=== PATIENT | male | born 1940 | race Caucasian/White ===

== ENCOUNTER 2019-05-11 12:10 | Emergency (ER) | payer MEDICARE, OTHER, SELFPAY ==
[2019-05-11 12:24] VITALS: BP 176/81; PULSE 86; RESP 16; TEMP 36.9; O2SAT 95; BMI 27.5
--- NOTE | 2019-05-11 12:26 | DI.RAD.S_ITS ---
PROCEDURE: XR CHEST 2V INDICATIONS: shortness of breath TECHNIQUE: 2 views of the chest were acquired. COMPARISON: [facility], CR, RIBS UNILATERAL 2 VIEWS, 01/17/2017, 13:19. [facility], CT, THORAX WITHOUT CONTRAST, 07/06/2016, 9:18. FINDINGS: Surgical changes and devices: None. Lungs and pleura: Low lung volumes are noted. This causes a crowded appearance to the lung markings and limits evaluation. Mild, streaky opacities are seen at the lung bases, right worse than left. No pneumothorax or large pleural effusion can be seen. Mediastinum: Mediastinal contours are normal. Heart size is normal. Bones and chest wall: No suspicious bony abnormalities. Remote right rib irregularity is seen, which is similar to 2017. Age-appropriate bony degenerative changes are seen. No acute rib fractures can be seen. Soft tissues appear unremarkable. IMPRESSION: Limited study demonstrating likely atelectasis at the lung bases, right worse than left. Remote right chest wall deformity. Dictated by: Hector Murillo M.D. on 05/11/2019 at 12:17 Approved by: Hector Murillo M.D. on 05/11/2019 at 12:18
[2019-05-11 13:17] LABS: Add Manual Diff / Slide Review NO; Basophils Absolute Auto 100 /uL (0-100); Basophils Percent Auto 1.1 % (0-2); Eosinophils Absolute Auto 100 /uL (0-450); Hematocrit 39.6 % (41-53); Hemoglobin 13.6 g/dL (13.5-17.5); Lymphocytes Absolute Auto 1400 /uL (1100-4500); Lymphocytes Percent Auto 16.6 % (25-40); Mean Corpuscular HGB Conc 34.4 % (30-36); Mean Corpuscular Hemoglobin 32.5 PG (26-34); Mean Corpuscular Volume 94.4 fL (80-100); Monocytes Absolute Auto 1500 /uL (0-900); Monocytes Percent Auto 18.1 % (3-14); Neutrophils Absolute Auto 5200 /uL (1500-7000); Neutrophils Percent Auto 63.2 % (50-75); Platelet Count 121 X10^3/uL (150-400); Red Cell Distribution Width 13.5 % (11.6-14.8); White Blood Cell Count 8.2 X10^3/uL (4.5-11.0)
[2019-05-11 13:22] LABS: Alanine Aminotransferase 37 IU/L (<50); Albumin 4.1 g/dL (3.5-5.0); Albumin Globulin Ratio 1.3 (1.0-2.8); Alkaline Phosphatase 94 U/L (38-126); Aspartate Aminotransferase 25 IU/L (17-59); BUN Creatinine Ratio 22.2 (6-22); Blood Urea Nitrogen 20 mg/dL (9-20); Calcium 9.1 mg/dL (8.4-10.2); Carbon Dioxide 21 mmol/L (22-32); Chloride 107 mmol/L (98-107); Estimated Glomerular Filt Rate > 60.0 mL/min (>60); Globulin 3.2 g/dL (1.7-4.1); Glucose 112 mg/dL (80-110); HEMOLYSIS < 15 (0-50); Potassium 3.9 mmol/L (3.4-5.1); Sodium 138 mmol/L (137-145); Total Protein 7.3 g/dL (6.3-8.2)
[2019-05-11 14:00] VITALS: BP 168/107; PULSE 80; RESP 13; O2SAT 97
--- NOTE | 2019-05-11 16:20 | PC.NURSE ---
RT at bedside
[2019-05-11] MEDS: ALBUTEROL/IPRATROPIUM 3 ML AMPUL INH (16:29)
[2019-05-11 16:30] VITALS: PULSE 84; RESP 16; O2SAT 97
[2019-05-11] MEDS: ALBUTEROL 2.5 MG/3 ML NEB (ADULT) INH (16:30)
[2019-05-11 16:59] VITALS: BP 147/64; PULSE 93; RESP 15; O2SAT 94
--- NOTE | 2019-05-11 23:25 | ED.SOB ---
HPI - SOB/Dyspnea <JANELLE Dinh - Last Filed: 05/12/19 00:02> General Chief Complaint: Shortness of Breath/Dyspnea Stated Complaint: difficulty breathing, coughing Time Seen by Provider: 05/11/19 15:31 Source: patient Mode of arrival: Ambulatory Limitations: no limitations History of Present Illness HPI Narrative: This is the 71s 8 year olds male, former smokers, who presenting to ED with cough, sore ribs, right pleuritic chest discomfort with cough over a week which she is getting worse. Patient has history of COPD, emphysema, asthma, thoracotomy on right chest from a severe pneumonia. Spouse states frequently patient's bed court turns to pneumonia in the past. Patient reports since then his right lung size is about only 2/3 of the left side lung in the imaging tests. Patient uses albuterol inhaler as needed and Advair twice a day. Patient usually does not require to use rescue inhaler too frequently. Patient reports he has been using rescue inhaler only a couple of times a day for his symptoms. Patient denies prior intubation. Patient denies fever, chills, nausea or vomiting but reports facial sinus tenderness to palpate and malaise. Patient states taking [id number] cold medicine causes is sinus get inflamed and clogged. Patient states he has been taking all the cold medication for his cough which has not been effective. Related Data Home Medications Medication Instructions Recorded Confirmed albuterol sulfate 90 mcg/actuation 2 puff INHALATION Q6H PRN 02/06/19 02/06/19 aerosol inhaler fluticasone 100 mcg-salmeterol 50 1 puff INHALATION DAILY 02/06/19 02/06/19 mcg/dose blistr powdr for inhalation gabapentin 300 mg capsule 300 mg PO DAILY 02/06/19 02/06/19 indomethacin 75 mg 75 mg PO DAILY 02/06/19 02/06/19 capsule,extended release methocarbamol 750 mg tablet 750 mg PO TID 02/06/19 02/06/19 montelukast 10 mg tablet 10 mg PO DAILY 02/06/19 02/06/19 Previous Rx's Medication Instructions Recorded doxycycline hyclate 100 mg PO BID 7 Days #14 cap 05/11/19 prednisone 40 mg PO DAILY 5 Days #10 tab 05/11/19 Allergies Allergy/AdvReac Type Severity Reaction Status Date / Time aspirin Allergy Unknown Verified 05/11/19 12:24 Review of Systems <JANELLE Dinh - Last Filed: 05/12/19 00:02> Review of Systems Narrative: General: Denies fever, chills, fatigue, (+) malaise, sweats. HEENT: Denies (+) sinus pain, ear pain, sore throat, difficulty swallowing, dizziness. Respiratory: HPI Cardiovascular: Denies (+) pleuritic right chest pain, palpitations, orthopnea, edema. Gastrointestinal: Denies nausea, vomiting, abdominal pain, diarrhea, constipation, melena. : Denies dysuria, frequency, incontinence, hematuria, urinary retention. Musculoskeletal: Denies weakness, joint pain or bony pain. Skin: Denies rash, skin lesions, or other. Neurologic: Denies weakness, headache, numbness, change in speech, confusion, seizures, incoordination. Psychiatric: No concerning psychosocial issues. 12-point review of systems is negative except for those stated above. Patient History <JANELLE Dinh - Last Filed: 05/12/19 00:02> Medical History Aortic valve insufficiency (Acute) Asthma (Acute) Chronic back pain (Acute) COPD (chronic obstructive pulmonary disease) (Acute) COPD (chronic obstructive pulmonary disease) (Acute) Emphysema lung (Acute) Hypotension (Acute) Surgical History History of thoracotomy (Acute) Hx of cholecystectomy (Acute) Social History marital status: household members: spouse occupational status: previously employed Smoking Status: Never smoker alcohol intake: never substance use type: does not use Smoking Status: Never smoker Exam <JANELLE Dinh - Last Filed: 05/12/19 00:02> Narrative Exam Narrative: GEN: Alert, oriented x 3, well appearing and nourished, and in no acute distress. Head: Normal cephalic, atraumatic. No scalp or temporal tenderness, palpable mass or rash. EYES: Pupils are equal, round, and reactive to light and accommodation. Extraocular muscles are intact bilaterally. There is no subconjunctival hemorrhage, exudate and sclera non-icteric. ENT: Bilateral auditory canals and tympanic membranes clear. Hearing grossly intact. Nose without bleeding, purulent discharge or deviation. Facial sinuses tender to palpate. Mucous membrane moist, no mucosal lesion. Throat without erythema, tonsillar hypertrophy or exudate. Uvula in midline, airway patent. Neck: Trachea in midline. No JVD, non-tender without lymphadenopathy. No masses or thyroid megaly. Supple, non-tender and no meningeal signs. CARDIAC: Normal regular rate and rhythm with murmurs but gallops, or rubs. No chest wall tenderness. No peripheral edema, cyanosis or pallor. Capillary refill is less than 2 seconds. RESPIRATORY: Lungs are significantly decreased to auscultate bilaterally. Frequent nonproductive cough without wheezes, rales, or rhonchi. No stridor, respiratory distress, increase work of breathing, or accessary muscle used. ABD: Abdomen soft, nontender and non-distended. No guarding or rebound tenderness to palpate. Bowel sounds are normal in all 4 quadrants. There is no palpable masses or organomegaly. EXT: Full painless ROM of all extremities with no loss of sensation, strength, effusion or edema. SKIN: Hot, dry, flushed appearance in the face. No erythema, lesions or rash over other visible areas. BACK: Nontender without deformity or crepitance. No flank tenderness. NEUROLOGICAL: Alert and oriented to place, time and person. Sensation and motor function intact bilaterally. No facial droops, dysphasia. PSYCHIATRIC: Good judgement and reason, without hallucinations, abnormal affect or abnormal behaviors during the examination. Initial Vital Signs Initial Vital Signs: Vital Signs Temperature 98.5 F 05/11/19 12:24 Pulse Rate 86 05/11/19 12:24 Respiratory Rate 16 05/11/19 12:24 Blood Pressure 176/81 H 05/11/19 12:24 Pulse Oximetry 95 05/11/19 12:24 <John Odom MD - Last Filed: 05/12/19 08:00> Initial Vital Signs Initial Vital Signs: Vital Signs Temperature 98.5 F 05/11/19 12:24 Pulse Rate 86 05/11/19 12:24 Respiratory Rate 16 05/11/19 12:24 Blood Pressure 176/81 H 05/11/19 12:24 Pulse Oximetry 95 05/11/19 12:24 Scores <Francisco BoudreauxJANELLE Mccollum - Last Filed: 05/12/19 00:02> LUZ MARINA-Rasheed Confusion: No BUN >19mg/dL (>7mmol/L): Yes Respiratory rate greater or equal to 30: No SBP <90mmHg or DBP less or equal to 60mmHg: No Age 65 or Older: Yes LUZ MARINA-Rasheed Total: 2 Score 0-1 Outpatient care, Score 2 Inpt vs. Obs, Score 3 or over Inpt admit with ICU for score of 4-5 GCS Joe coma scale eye opening: Spontaneous Florence coma scale verbal response: Orientated Florence coma scale motor response: Obey commands Joe coma scale total score: 15 Course <Francisco BoudreauxJANELLE Mccollum - Last Filed: 05/12/19 00:02> Orders Ordered: Discontinued Medications Albuterol (Ventolin) 2.5 mg INH NOW ONE Stop: 05/11/19 15:55 Last Admin: 05/11/19 16:30 Dose: 2.5 mg Documented by: ANTOINE Albuterol/Ipratropium (Duoneb) 3 ml INH NOW ONE Stop: 05/11/19 15:55 Last Admin: 05/11/19 16:29 Dose: 3 ml Documented by: ANTOINE Vital Signs Vital signs: Vital Signs - 8 hr 05/11/19 16:30 05/11/19 16:59 Pulse Rate 84 93 H Respiratory Rate 16 15 Blood Pressure [Left Arm] 147/64 H Pulse Oximetry 97 94 <John Odom MD - Last Filed: 05/12/19 08:00> Orders Ordered: Discontinued Medications Albuterol (Ventolin) 2.5 mg INH NOW ONE Stop: 05/11/19 15:55 Last Admin: 05/11/19 16:30 Dose: 2.5 mg Documented by: ANTOINE Albuterol/Ipratropium (Duoneb) 3 ml INH NOW ONE Stop: 05/11/19 15:55 Last Admin: 05/11/19 16:29 Dose: 3 ml Documented by: ANTOINE Vital Signs Vital signs: Vital Signs - 8 hr 05/11/19 16:30 05/11/19 16:59 Pulse Rate 84 93 H Respiratory Rate 16 15 Blood Pressure [Left Arm] 147/64 H Pulse Oximetry 97 94 MDM - SOB/Dyspnea <Francisco WINTER FischerP - Last Filed: 05/12/19 00:02> Differential Diagnosis Differential diagnosis: Likely acute exacerbation of chronic obstructive airways disease, community acquired pneumonia, asthma with exacerbation and other (URI, sinus infection) Medical Records Attestation: I reviewed the patient's medical records. Lab Data Attestation: I reviewed the patient's lab results. Result diagrams: 05/11/19 12:43 05/11/19 12:43 Labs: Lab Results 05/11/19 05/11/19 Range/Units 12:43 12:43 WBC 8.2 (4.5-11.0) X10^3/uL RBC 4.20 L (4.5-5.9) X10^6/uL Hgb 13.6 (13.5-17.5) g/dL Hct 39.6 L (41-53) % MCV 94.4 (80-100) fL MCH 32.5 (26-34) PG MCHC 34.4 (30-36) % RDW 13.5 (11.6-14.8) % Plt Count 121 L (150-400) X10^3/uL Neut % (Auto) 63.2 (50-75) % Lymph % (Auto) 16.6 L (25-40) % Callahan % (Auto) 18.1 H (3-14) % Eos % (Auto) 1.0 L (2-4) % Baso % (Auto) 1.1 (0-2) % Neut # (Auto) 5200 (2983-1262) /uL Lymph # (Auto) 1400 (6957-6912) /uL Callahan # (Auto) 1500 H (0-900) /uL Eos # (Auto) 100 (0-450) /uL Baso # (Auto) 100 (0-100) /uL Sodium 138 (137-145) mmol/L Potassium 3.9 (3.4-5.1) mmol/L Chloride 107 (98-107) mmol/L Carbon Dioxide 21 L (22-32) mmol/L BUN 20 (9-20) mg/dL Creatinine 0.90 (0.66-1.25) mg/dL Estimated GFR > 60.0 (>60) mL/min BUN/Creatinine Ratio 22.2 H (6-22) Glucose 112 H (80-110) mg/dL Calcium 9.1 (8.4-10.2) mg/dL Total Bilirubin 1.0 (0.2-1.3) mg/dL AST 25 (17-59) IU/L ALT 37 (<50) IU/L Alkaline Phosphatase 94 (38-126) U/L Total Protein 7.3 (6.3-8.2) g/dL Albumin 4.1 (3.5-5.0) g/dL Globulin 3.2 (1.7-4.1) g/dL Albumin/Globulin Ratio 1.3 (1.0-2.8) Imaging Data Chest x-ray: Radiologist's Impression: [address] [address] XRay Report Signed Patient: Michelet Ibarra DMR#: [id number] : 2Acct:[id number] Age/Sex: 78 / MDate of Service: 05/11/19 Loc: ED Accession Number: [id number] Procedure: XR chest 2V Ordering Provider: John Odom MD PROCEDURE: XR CHEST 2V INDICATIONS: shortness of breath TECHNIQUE: 2 views of the chest were acquired. COMPARISON: [facility], CR, RIBS UNILATERAL 2 VIEWS, 01/17/2017, 13:19. [facility], CT, THORAX WITHOUT CONTRAST, 07/06/2016, 9:18. FINDINGS: Surgical changes and devices: None. Lungs and pleura: Low lung volumes are noted. This causes a crowded appearance to the lung markings and limits evaluation. Mild, streaky opacities are seen at the lung bases, right worse than left. No pneumothorax or large pleural effusion can be seen. Mediastinum: Mediastinal contours are normal. Heart size is normal. Bones and chest wall: No suspicious bony abnormalities. Remote right rib irregularity is seen, which is similar to 2017. Age-appropriate bony degenerative changes are seen. No acute rib fractures can be seen. Soft tissues appear unremarkable. IMPRESSION: Limited study demonstrating likely atelectasis at the lung bases, right worse than left. Remote right chest wall deformity. Dictated by: Hector Murillo M.D. on 05/11/2019 at 12:17 Approved by: Hector Murillo M.D. on 05/11/2019 at 12:18 ECG Data Attestation: I personally reviewed and interpreted this ECG as follows: Prior ECG tracings: not available for review Interpretation: SR rate at 82. Left axis dominant MA int 191, QRS dur 103, QT/QTc 372/410. Non specific T wave abnormality MDM Narrative Medical decision making narrative: This is a 78 year old male who has significant pulmonary is is a history such as asthma, emphysema, COPD and right chest thoracotomy from a severe pneumonia presents to ED with over 1 week duration of cough, short of breath and pleuritic chest pain. EKG was normal sinus rhythm with nonspecific T-wave abnormalty. There was no significant leukocytosis. Chemistry test was unremarkable. Patient was afebrile with stable vital signs. Chest x-ray shows with mild streaky opacities on the lung bases right worse than left demonstrating likely atelectasis. Patient's lung sounds were significantly diminished in all lobes. Patient provided with nebulizer treatment with DuoNeb and albuterol improved air movement. Patient had frequent nonproductive cough witnessed during exam. Patient advised to use nebulizer treatment at home that he has not used and albuterol inhaler more frequently if patient has symptoms such as chest tightness, frequent coughing, wheezing. Given the duration of patient's symptoms which is worsening, extensive history of pulmonary disease, decided to treat patient empirically with antibiotic medication doxycycline b.i.d. dose for 7 day course. Patient also discharged to home with short burst course of steroids. Patient informed possible side effects from steroids and advised to follow up with PCP in 2-3 days for re-evaluation. Strict return precautions were discussed with the patient and patient verbalized understanding and in agreement with treatment plan. <John Odom MD - Last Filed: 05/12/19 08:00> Lab Data Labs: Lab Results 05/11/19 05/11/19 Range/Units 12:43 12:43 WBC 8.2 (4.5-11.0) X10^3/uL RBC 4.20 L (4.5-5.9) X10^6/uL Hgb 13.6 (13.5-17.5) g/dL Hct 39.6 L (41-53) % MCV 94.4 (80-100) fL MCH 32.5 (26-34) PG MCHC 34.4 (30-36) % RDW 13.5 (11.6-14.8) % Plt Count 121 L (150-400) X10^3/uL Neut % (Auto) 63.2 (50-75) % Lymph % (Auto) 16.6 L (25-40) % Callahan % (Auto) 18.1 H (3-14) % Eos % (Auto) 1.0 L (2-4) % Baso % (Auto) 1.1 (0-2) % Neut # (Auto) 5200 (5239-1647) /uL Lymph # (Auto) 1400 (0260-2838) /uL Callahan # (Auto) 1500 H (0-900) /uL Eos # (Auto) 100 (0-450) /uL Baso # (Auto) 100 (0-100) /uL Sodium 138 (137-145) mmol/L Potassium 3.9 (3.4-5.1) mmol/L Chloride 107 (98-107) mmol/L Carbon Dioxide 21 L (22-32) mmol/L BUN 20 (9-20) mg/dL Creatinine 0.90 (0.66-1.25) mg/dL Estimated GFR > 60.0 (>60) mL/min BUN/Creatinine Ratio 22.2 H (6-22) Glucose 112 H (80-110) mg/dL Calcium 9.1 (8.4-10.2) mg/dL Total Bilirubin 1.0 (0.2-1.3) mg/dL AST 25 (17-59) IU/L ALT 37 (<50) IU/L Alkaline Phosphatase 94 (38-126) U/L Total Protein 7.3 (6.3-8.2) g/dL Albumin 4.1 (3.5-5.0) g/dL Globulin 3.2 (1.7-4.1) g/dL Albumin/Globulin Ratio 1.3 (1.0-2.8) Discharge Plan Departure Patient Disposition: Home Clinical Impression: COPD exacerbation URI (upper respiratory infection) Qualifiers: URI type: unspecified URI Qualified Code(s): J06.9 - Acute upper respiratory infection, unspecified Discharge Date/Time: 05/11/19 17:26 Instructions: DI for Chronic Obstructive Pulmonary Disease, DI for Viral Upper Respiratory Infection -- Adult Activity Restrictions/Additional Instructions: You have been diagnosed with [URI, COPD exacerbation. Blood tests were unremarkable. X-ray does not show obvious pneumonia at this time.]. What to do: *Take your medications as directed. Since her cough has been over 1 week with pleuritic chest pain with significant history of pulmonary disease, will start antibiotic medication doxycycline b.i.d. course for 7 days. Please take prednisone 40 mg daily for next 5 days. This may cause increasing blood sugar, insomnia, gastric upset. This medication have been transmitted to [facility] in [place]. You can take ylpd-ymu-etkwnve guaifenesin (Mucinex) to help with the cough. You can use humidifier. Please use nebulizer treatment at home when you have frequent cough, short of breath, chest tightness. You can use this every 4 hours as needed. Also, you can increased inhaler use more frequently for the same symptoms when your out and about. *Follow up with your primary care provider in 2-3 days, call for an appointment. Let them know you were seen in the ED and that we asked you to be seen in follow up. *Return to ED if you have any new, worsening, or concerning symptoms, such as [increasing or different chest pain, increasing short of breath, unable to tolerate fluids, high fever, or any acute concerns]. Prescriptions: New prednisone 20 mg tablet 40 mg PO DAILY 5 Days Qty: 10 RF: 0 doxycycline hyclate 100 mg capsule 100 mg PO BID 7 Days Qty: 14 RF: 0 No Action albuterol sulfate [ProAir HFA] 90 mcg/actuation HFA aerosol inhaler 2 puff INHALATION Q6H PRNRF: 0 methocarbamol 750 mg tablet 750 mg PO TID RF: 0 indomethacin 75 mg capsule, extended release 75 mg PO DAILY RF: 0 fluticasone propion-salmeterol [Advair Diskus] 100-50 mcg/dose blister with device 1 puff INHALATION DAILY RF: 0 montelukast 10 mg tablet 10 mg PO DAILY RF: 0 gabapentin 300 mg capsule 300 mg PO DAILY RF: 0 Referrals: Mike Peters MD [Primary Care Provider] -
== END 2019-05-11 17:26 | disposition home or self-care (01) ==
PROVIDERS: Emergency Medicine; Emergency Provider Nurse Practitioner Family; PCP Internal Medicine
DX: J44.1 Chronic obstructive pulmonary disease with (acute) exacerbation (principal); J06.9 Acute upper respiratory infection, unspecified; R06.02 Shortness of breath
CPT/HCPCS: 36415; 71046; 80053; 85025; 93005; 94640; 99284; 99285; J7613

== ENCOUNTER → 2019-08-19 11:09 | Outpatient (CLI) | payer MEDICARE, OTHER, SELFPAY ==
[2019-08-20 10:24] LABS: COVID19 Sendout Not Detected (Not Detect)
== END ==
PROVIDERS: PCP Internal Medicine; Visit Provider Registered Nurse
DX: Z01.818 Encounter for other preprocedural examination (principal)
CPT/HCPCS: 87635

== ENCOUNTER → 2019-08-22 12:20 | Outpatient (CLI) | payer MEDICARE, OTHER, SELFPAY ==
--- NOTE | 2019-08-27 10:28 | PM.PFT.1 ---
Pulmonary Function Test Referral & Results Date Patient Seen: 08/22/19 Requesting provider: Russ Wilkinson Results: The spirometry demonstrates an FVC of 4.40 L which is 87% of predicted. The FEV1 was measured at 3.01 L which is 82% of predicted. The FEV1/FVC ratio was 68 which is 94% of predicted. Following the administration of bronchodilator there was no appreciable change. Lung volumes show an SVC of 4.58 L which is 88% of predicted. The diffusing capacity was measured at 17.28 which is 44% of predicted. No hemoglobin value was provided, so no correction for potential anemia could be made, if appropriate. The maximum voluntary ventilation was normal Interpretation: This study demonstrates mild obstructive lung disease based on slight reduction FEV1. There is no evidence of benefit following bronchodilator There is a more marked reduction in diffusing capacity suggesting more significant disease at the capillary alveolar level as well. Clinical correlation suggested
== END ==
PROVIDERS: PCP Internal Medicine; Referring Provider Internal Medicine Pulmonary Disease; Visit Provider Internal Medicine Pulmonary Disease
DX: J44.9 Chronic obstructive pulmonary disease, unspecified (principal)
CPT/HCPCS: 94060; 94664; 94726; 94729

== ENCOUNTER → 2020-01-20 09:01 | Outpatient (CLI) | payer MEDICARE, OTHER, SELFPAY ==
--- NOTE | 2020-01-20 | DI.MRI.S_ITS ---
PROCEDURE: MR ABDOMEN WO/W CON INDICATIONS: Other specified diseases of pancreas TECHNIQUE: Coronal HASTE, axial 2D FLASH in- and [id number]; axial breath-hold T2 FSE with fat saturation from the hepatic dome to the iliac crests. Oblique coronal thin-slice and radial thick slab HASTE through the biliary system. Dynamic axial VIBE during administration of contrast. Post-contrast coronal VIBE or 2D FLASH with fat saturation from the hepatic dome to the iliac crests. Optional diffusion weighted imaging and ADC may be performed. COMPARISON: [facility], CT, CT CHEST WITHOUT CONTRAST, 01/08/2020, 12:20. FINDINGS: Image quality: Excellent. Pancreas and biliary system: The pancreatic head, neck and body appear normal. At the pancreatic tail there is a ovoid fluid collection showing a thin wall and no abnormal associated enhancement, measuring up to 1.4 cm in maximal dimension, corresponding to the area of prior CT concern seen 01/08/20. The structure was not as well delineated by CT scanning due to noncontrast imaging technique at that time, but is seen on series 2, image [address] scan. It is best seen on the current imaging utilizing pulse sequences optimized for biliary visualization, and is well visualized on coronal series 5, image 16, and axial series 6, image 14, appears in close proximity to the main pancreatic duct but likely is associated with this side duct branch. No significant mass effect present. No adenopathy seen. Solid organs: Liver is normal in size and enhancement. No hepatic mass lesion is identified that would suggest presence of neoplasm. Gallbladder appears absent. Spleen is normal in size and enhancement. No adrenal nodules. Kidneys are normal in size and enhancement, without hydronephrosis. Nodes and vessels: No retroperitoneal or mesenteric adenopathy by size criteria. Aorta and inferior vena cava are normal in size. Bowel and peritoneum: Unenhanced bowel loops are normal in caliber throughout. No free fluid. Lung bases: No basal pleural effusions. Heart size is normal. Bones and soft tissues: No ventral hernias. Bone marrow is normal in overall signal. IMPRESSION: There is a small cystic structure at the pancreatic tail, measuring up to 1.4 cm in dimension, corresponding to the area of CT concern on noncontrast CT scanning 01/08/20. This has no associated mass effect or mass component, and shows no contrast enhancement. This may represent a intrapancreatic pseudocyst or other cyst of benign origin. Given its proximity to the side branch of the pancreatic duct in this area it also could represent a coincidental finding of a intraductal papillary mucinous neoplasm open (IPMN), side-branch type. This structure can be evaluated if clinically desired by repeat noncontrast MR technique in 1 year. Gastroenterology consultation for selecting frequency of follow-up likely is warranted. Dictated by: Deniz Godinez M.D. on 01/20/2020 at 16:05 Approved by: Deniz Godinez M.D. on 01/20/2020 at 16:16
== END ==
PROVIDERS: PCP Internal Medicine; Referring Provider Internal Medicine; Visit Provider Internal Medicine
DX: K86.2 Cyst of pancreas (principal)
CPT/HCPCS: 74183

== ENCOUNTER → 2020-09-22 10:36 | Outpatient (CLI) | payer MEDICARE, OTHER, SELFPAY ==
[2020-09-22 11:38] LABS: COVID19 -Nasal RAPID Negative (Negative)
== END ==
PROVIDERS: PCP Internal Medicine; Referring Provider Internal Medicine; Visit Provider Internal Medicine
DX: Z20.822 Contact with and (suspected) exposure to COVID-19 (principal)
CPT/HCPCS: 87635; C9803

== ENCOUNTER → 2020-09-23 08:28 | Outpatient (CLI) | payer MEDICARE, OTHER, SELFPAY ==
--- NOTE | 2020-09-29 09:44 | PM.PFT.1 ---
Pulmonary Function Test Referral & Results Date Patient Seen: 09/23/20 Requesting provider: Favian Winslow Results: The spirometry demonstrates an FVC of 3.91 L which is 70% of predicted. The FEV1 was measured at 2.74 L which is 76% of predicted. The FEV1/FVC ratio was 70 which is 97% of predicted. Following the administration of bronchodilator there was no change. Lung volumes show an SVC of 3.86 L which is 74% of predicted. The diffusing capacity was measured at 17.76 which is 45% of predicted. No hemoglobin value was provided, so no correction for potential anemia could be made, if appropriate. The maximum voluntary ventilation was reduced Interpretation: This study demonstrates minimal reduction in FEV1 an SVC suggesting perhaps very minimal obstructive and restrictive lung loop supports the presence of obstructive lung disease. There is no evidence of benefit following bronchodilator There is a much more significant reduction diffusing capacity suggesting significant disease at the capillary alveolar level Compared to PFTs performed in July 2019, current study shows essentially no overall change from prior.
== END ==
PROVIDERS: PCP Internal Medicine; Referring Provider Internal Medicine Critical Care Medicine; Visit Provider Internal Medicine Critical Care Medicine
DX: J84.89 Other specified interstitial pulmonary diseases (principal); J98.8 Other specified respiratory disorders; J84.170 Interstitial lung disease with progressive fibrotic phenotype in diseases classified elsewhere; Z87.891 Personal history of nicotine dependence
CPT/HCPCS: 94060; 94726; 94729

== ENCOUNTER → 2020-10-15 08:51 | Outpatient (CLI) | payer MEDICARE, OTHER, SELFPAY ==
--- NOTE | 2020-10-15 08:53 | DI.CT.S_ITS ---
PROCEDURE: CT CHEST HIGH RESOLUTION INDICATIONS: Other specified interstitial pulmonary diseases TECHNIQUE: Noncontrast 1.0 and 5.0 mm thick contiguous axial sections from the pulmonary apex to the posterior costophrenic angles, with 7 mm thick coronal and sagittal MIP reformats. 1 mm thick dynamic expiratory images acquired through the upper, mid, and lower lungs. 1.0 mm thick axial sections acquired from the rajwinder to the posterior costophrenic angles in the prone end-inspiration position. For radiation dose reduction, the following was used: automated exposure control, adjustment of mA and/or kV according to patient size. COMPARISON: [facility], CT, CT CHEST WITHOUT CONTRAST, 01/08/2020, 12:20. FINDINGS: Image quality: Excellent. Lungs and pleura: There are mild centrilobular emphysematous changes. Scarring in the periphery of the right middle lobe and right lower lobe adjacent to the diaphragm in the costophrenic angle, unchanged compared to prior CT. No acute air space opacities. No pleural effusions or pneumothorax. Central and peripheral airways are patent and normal in caliber. High-resolution and inspiratory/expiratory views do not demonstrate any interstitial fibrosis or restrictive air disease. Mediastinum: Heart size is normal. The coronary arteries have atherosclerotic calcifications. No pericardial effusion. No mediastinal adenopathy by size criteria. Thoracic aorta and central pulmonary arteries are normal in size. Esophagus is normal in caliber. No hiatal hernia. Bones and chest wall: The right 6th rib has deformity. No suspicious bony lesions. No vertebral body compression fractures. No axillary or supraclavicular adenopathy by size criteria. Thyroid gland is normal. Abdomen: Limited visualization of the upper abdomen shows no acute abnormality. IMPRESSION: 1. Mild centrilobular emphysematous changes. 2. Septal thickening in the right costophrenic angle posteriorly and laterally is consistent with postinflammatory scarring, unchanged compared to 12/29/2019. No interstitial fibrosis. Dictated by: Tate Muñiz M.D. on 10/15/2020 at 9:53 Approved by: Tate Muñiz M.D. on 10/15/2020 at 10:22
== END ==
PROVIDERS: PCP Internal Medicine; Referring Provider Internal Medicine Critical Care Medicine; Visit Provider Internal Medicine Critical Care Medicine
DX: J84.89 Other specified interstitial pulmonary diseases (principal)
CPT/HCPCS: 71250

== ENCOUNTER → 2021-08-31 08:27 | Outpatient (CLI) | payer MEDICARE, OTHER, SELFPAY ==
--- NOTE | 2021-08-31 08:31 | DI.CT.S_ITS ---
PROCEDURE: CT CHEST HIGH RESOLUTION INDICATIONS: Idiopathic pulmonary fibrosis TECHNIQUE: Noncontrast 1.0 and 5.0 mm thick contiguous axial sections from the pulmonary apex to the posterior costophrenic angles, with 7 mm thick coronal and sagittal MIP reformats. 1 mm thick dynamic expiratory images acquired through the upper, mid, and lower lungs. 1.0 mm thick axial sections acquired from the rajwinder to the posterior costophrenic angles in the prone end-inspiration position. For radiation dose reduction, the following was used: automated exposure control, adjustment of mA and/or kV according to patient size. COMPARISON: [facility], CT, THORAX WITHOUT CONTRAST, 07/06/2016, 9:18. [facility], CT, CT CHEST WITHOUT CONTRAST, 01/08/2020, 12:20. [facility], CT, CT CHEST HIGH RESOLUTION, 10/15/2020, 9:01. FINDINGS: Image quality: Good. Lungs: Mild right lung volume loss. Moderate reticular thickening in the periphery of the right mid lung and right lung base. These findings persist on the prone sequence. This finding is similar to the prior CTs and may be slightly increased compared to 2017. There is minimal bronchiectasis at the right lower lobe. The central airways are clear. No mass or significant pulmonary nodules. No honeycombing. Pleura: No pleural effusions or pneumothorax. Mediastinum: Heart size is normal. Mild coronary artery calcifications. No pericardial effusion. Thoracic aorta and central pulmonary arteries are normal in size. Esophagus is normal in caliber. Bones and chest wall: Chronic deformity of the right 6th rib is unchanged. No suspicious bony lesions. No vertebral body compression fractures. Abdomen: Small hepatic cysts or hemangioma. Gallbladder is absent. Small calcifications in the tail the pancreas appears similar to 2017. This could be the sequelae of chronic calcific pancreatitis. IMPRESSION: 1. Stable reticular thickening in the right lung. Stable deformity of the right 6th rib. These findings could be postsurgical, posttraumatic, or due to interstitial lung disease. 2. No acute airspace opacity. No pleural effusion. Dictated by: Hamlet Blum M.D. on 08/31/2021 at 9:15 Approved by: Hamlet Blum M.D. on 08/31/2021 at 9:29
== END ==
PROVIDERS: PCP Internal Medicine; Referring Provider Internal Medicine Critical Care Medicine; Visit Provider Internal Medicine Critical Care Medicine
DX: J84.112 Idiopathic pulmonary fibrosis (principal)
CPT/HCPCS: 71250

== ENCOUNTER → 2021-09-22 09:39 | Outpatient (CLI) | payer MEDICARE, OTHER, SELFPAY ==
[2021-09-22 11:07] LABS: COVID19 -Nasal RAPID Negative (Negative)
== END ==
PROVIDERS: PCP Internal Medicine; Referring Provider Internal Medicine; Visit Provider Internal Medicine
DX: Z20.822 Contact with and (suspected) exposure to COVID-19 (principal)
CPT/HCPCS: 87635; C9803

== ENCOUNTER → 2021-09-23 09:33 | Outpatient (CLI) | payer MEDICARE, OTHER, SELFPAY ==
--- NOTE | 2021-09-30 08:41 | PM.PFT.1 ---
Pulmonary Function Test Referral & Results Date Patient Seen: 09/23/21 Requesting provider: Favian Winslow Results: The spirometry demonstrates an FVC of 4.02 L which is 81% of predicted. The FEV1 was measured at 2.77 L which is 78% of predicted. The FEV1/FVC ratio was 69 which is 95% of predicted. Following the administration of bronchodilator there was no appreciable change. Lung volumes show an SVC of 3.95 L which is 76% of predicted. The diffusing capacity was measured at 15.20 which is 38% of predicted. No hemoglobin value was provided, so no correction for potential anemia could be made, if appropriate. The maximum voluntary ventilation was reduced Interpretation: This study demonstrates possibly mild obstructive lung disease based on reduction FEV1 although FEV1/FVC ratio is preserved and there is no evidence of benefit following bronchodilator administration There is a moderate reduction in lung volumes suggesting [id number] restrictive lung disease is present which probably explains the abnormality of the FEV1 above There is a much more significant reduction diffusing capacity suggesting significant disease at the capillary alveolar level to the point where patient is possibly hypoxic at times on room air Compared to PFTs performed in September 2020, current study shows essentially no change in spirometry but a decline in diffusing capacity which was previously at 45% of predicted currently at 30% of predicted Clinical correlation suggested
== END ==
PROVIDERS: PCP Internal Medicine; Referring Provider Internal Medicine Critical Care Medicine; Visit Provider Internal Medicine Critical Care Medicine
DX: J84.112 Idiopathic pulmonary fibrosis (principal); J98.8 Other specified respiratory disorders
CPT/HCPCS: 94060; 94726; 94729

== ENCOUNTER → 2022-01-26 08:41 | Outpatient (CLI) | payer OTHER, SELFPAY ==
--- NOTE | 2022-01-26 11:18 | DI.MRI.S_ITS ---
PROCEDURE: MR ABDOMEN WO/W CON INDICATIONS: PANCREATIC MASS TECHNIQUE: Coronal HASTE, axial 2D FLASH in- and [id number]; axial breath-hold T2 FSE with fat saturation from the hepatic dome to the iliac crests. Oblique coronal thin-slice and radial thick slab HASTE through the biliary system. Dynamic axial VIBE during administration of contrast. Post-contrast coronal VIBE or 2D FLASH with fat saturation from the hepatic dome to the iliac crests. Optional diffusion weighted imaging and ADC may be performed. COMPARISON: [facility], , MR ABDOMEN WO/W CON, 01/20/2020, 9:22. FINDINGS: Image quality: Excellent. Pancreas and biliary system: A 1.4 cm thin-walled cyst in the tail of the pancreas is redemonstrated. There is immediately adjacent 1.1 cm cyst, and at least two other much smaller cysts in the tail and pancreatic head. The pancreatic duct remains nondilated and demonstrates classic ductal anatomy. Some of these cysts are in very close proximity to the pancreatic duct, and one in the distal most tail demonstrates communication. Postcontrast, there is no suspicious enhancement of the wall or any internal components. No suspicious enhancing mass in the pancreas. Solid organs: The liver is normal size. There are several hypoenhancing cysts. The gallbladder is absent. The biliary tree is nondilated. The spleen is normal in size and signal. A cyst measuring up to 3.9 cm arises from the posterior left kidney. No hydronephrosis. No adrenal nodules. Nodes and vessels: No retroperitoneal or mesenteric adenopathy by size criteria. Aorta and inferior vena cava are normal in size. Bowel and peritoneum: Unenhanced bowel loops are normal in caliber throughout. No free fluid. Lung bases: No basal pleural effusions. Heart size is normal. Bones and soft tissues: No ventral hernias. Bone marrow is normal in overall signal. IMPRESSION: 1. No significant change to a several tiny pancreatic cysts, likely small dilated side branches, possibly early IPMN. No pancreatic ductal dilatation. 2. Incidental liver and renal cysts. Dictated by: Sarah Aguilar M.D. on 01/26/2022 at 12:55 Approved by: Sarah Aguilar M.D. on 01/26/2022 at 13:08
== END ==
PROVIDERS: PCP Internal Medicine; Referring Provider Internal Medicine; Visit Provider Internal Medicine
DX: K86.2 Cyst of pancreas (principal); N28.1 Cyst of kidney, acquired; K76.89 Other specified diseases of liver
CPT/HCPCS: 74183; A9579

== ENCOUNTER 2022-06-11 00:03 | Emergency (ER) | payer OTHER, SELFPAY ==
[2022-06-11 00:14] VITALS: BP 184/83; PULSE 84; RESP 15; TEMP 36.4; O2SAT 97; BMI 25.0
--- NOTE | 2022-06-11 00:21 | ED_ITS ---
HPI - Dental/Oral General Chief complaint: Dental/Oral Stated complaint: tooth pain/swollen face Time Seen by Provider: 06/11/22 00:08 Source: patient Mode of arrival: Ambulatory History of Present Illness HPI Narrative: 81-year-old male nonsmoker presents with his daughter in the chief complaint of dental pain, perhaps a small amount of drainage and some swelling of his left upper jaw over the course of the day. He denies any trauma or injury. He has no fever or chills. He denies any tongue, lip or throat swelling. He is had no difficulty breathing or swallowing. He is in the process of trying to find a dentist and is concerned about infection Related Data Home Medications Medication Instructions Recorded Confirmed albuterol sulfate 90 mcg/actuation 2 puff inhalation Q6H PRN 02/06/19 02/06/19 aerosol inhaler (ProAir HFA) fluticasone 100 mcg-salmeterol 50 1 puff inhalation DAILY 02/06/19 02/06/19 mcg/dose blistr powdr for inhalation (Advair Diskus) gabapentin 300 mg capsule 300 mg PO DAILY 02/06/19 02/06/19 indomethacin 75 mg 75 mg PO DAILY 02/06/19 02/06/19 capsule,extended release methocarbamol 750 mg tablet 750 mg PO TID 02/06/19 02/06/19 montelukast 10 mg tablet 10 mg PO DAILY 02/06/19 02/06/19 Previous Rx's Medication Instructions Recorded amoxicillin 875 mg-potassium 1 tab PO Q12H #20 tabs 06/11/22 clavulanate 125 mg tablet hydrocodone 5 mg-acetaminophen 325 1 tab PO Q4-6H PRN pain #10 tabs 06/11/22 mg tablet Allergies Allergy/AdvReac Type Severity Reaction Status Date / Time aspirin Allergy Unknown Verified 05/11/19 12:24 Review of Systems Review of Systems Narrative: GENERAL: Denies chills, fatigue, malaise, fever, sweats. HEENT: Denies sinus pain, ear pain, sore throat, difficulty swallowing, dizziness. RESPIRATORY: Denies dyspnea, cough, wheezing, hemoptysis, sputum. CARDIOVASCULAR: Denies chest pain, palpitations, orthopnea, edema, GASTROINTESTINAL: Denies nausea, vomiting, abdominal pain, diarrhea, constipation, melena. : Denies dysuria, frequency, incontinence, hematuria, urinary retention. MUSCULOSKELETAL: denies weakness, joint pain, or bony pain SKIN: Denies rash, skin lesions, or other NEUROLOGIC: Denies weakness, headache, numbness, change in speech, confusion, seizures, incoordination. PSYCHIATRIC: No concerning psychosocial issues. 12 point review of systems is negative except for those stated above Patient History Medical History Aortic valve insufficiency Asthma Chronic back pain COPD (chronic obstructive pulmonary disease) COPD (chronic obstructive pulmonary disease) Emphysema lung Hypotension Surgical History History of thoracotomy Hx of cholecystectomy Social History marital status: household members: spouse occupational status: previously employed Smoking Status: Never smoker alcohol intake: never substance use type: does not use Smoking Status: Never smoker Substance Use Type: does not use Exam Narrative Exam Narrative: GEN: AOx3 and in mild distress EYES: Pupils are equal, round, and reactive to light and accommodation. Extraoccular muscles are intact bilaterally. There is no subconjunctival hemorrhage or exudate. ENT: Mild swelling of left face, superior and lateral to left maxilla, intraoral exam demonstrates poor dentition throughout, no obvious fluctuant mass to suggest incision and drainage or needle aspiration of abscess as possible. Patient without difficulty breathing, airway patent and controlling secretions. Moist mucous membranes CHEST: Lungs are clear to auscultation bilaterally and free of wheezes, rales, or rhonchi. Heart rate is regular rhythm, there are no murmurs, clicks, rubs, or gallops. There is no chest wall tenderness. ABD: Abdomen is soft and nontender. There is no guarding or rebound. Bowel sounds are normal in all 4 quadrants. There is no mass or organomegaly. EXT: Full painless ROM of all extremities with no loss of sensation or strength. SKIN: Warm, pink, and dry. No erythema or rash Initial Vital Signs Initial Vital Signs: Vital Signs Temperature 97.5 F L 06/11/22 00:14 Pulse Rate 84 06/11/22 00:14 Respiratory Rate 15 06/11/22 00:14 Blood Pressure 184/83 H 06/11/22 00:14 Pulse Oximetry 97 06/11/22 00:14 Oxygen Delivery Method Room Air 06/11/22 00:14 Course Orders Ordered: Discontinued Medications Hydrocodone Bitart/Acetaminophen (Hydrocodone/Acet 5/325 Prepack) 1 bottle MISC SEEINSTR ONE Stop: 06/11/22 00:31 Last Admin: 06/11/22 00:46 Dose: 1 bottle Documented By: ALDA Amoxicillin/Clavulanate Potassium (Amoxicillin/Clav 875/125 Mg) 1 tab PO NOW ONE Stop: 06/11/22 00:31 Last Admin: 06/11/22 00:46 Dose: 1 tab Documented By: ALDA Vital Signs Vital signs: Vital Signs - 8 hr 06/11/22 00:14 Temperature 97.5 F L Pulse Rate 84 Respiratory Rate 15 Blood Pressure 184/83 H Pulse Oximetry 97 Oxygen Delivery Method Room Air MDM - Dental/Oral MDM Narrative Medical decision making narrative: [81] year old patient presents with facial swelling and dental pain Multiple etiologies for patient's symptoms considered including, but not limited to: [Dental infection versus abscess versus facial cellulitis versus other] Prior Charts reviewed in our EMR Primary Historian: patient Patient with dental pain and facial swelling suggestive of abscess of odontogenic origin. No intraoral mass to be drained. Patient started on antibiotics and encouraged to follow closely with dentist Patient's symptoms improved over duration of stay with above-stated therapies. Findings and discharge diagnosis discussed with patient/family followed by verbalization of understanding Return precautions discussed with patient/family whom verbalize understanding of diagnosis and plan Discharge Plan Departure Patient Disposition: Home Clinical Impression: Dental infection, Dental abscess Instructions: Tooth Abscess Activity Restrictions/Additional Instructions: *You have been diagnosed with [dental pain and likely associated abscess] *What to do: *Please continue to take your regular medications as directed. [ x] New medication prescriptions sent to your pharmacy: [[facility] in [place]] [ ] New medication written as a paper prescription [ ] No new medications given *Please follow up with your primary dental provider in 2-3 days, call for an appointment. Let them know you were seen in the Emergency Department and that we ask that you be seen in follow up. As we discussed I have included the contact information for Dr. Brandon who is the only dental provider on staff here at [facility]. His office is in other option *Return to Emergency Department if you should have any new, worsening or concerning symptoms, such as [fever greater than 101 F, shaking chills, worsening pain, persistent vomiting or other bothersome symptoms] You have been prescribed a short course of narcotic medications. These are potentially dangerous and addictive medications that should be used carefully. While on these medications you cannot drive or operate heavy machinery. Additionally, you cannot sign legal documents or perform any duties such as this. 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 Please understand that we cannot provide further refills of narcotics or controlled substances through the ED and your pain management will need to be through your Primary Care Provider Prescriptions: New hydrocodone-acetaminophen 5-325 mg tablet 1 tab PO Q4-6H PRN (Reason: pain) Qty: 10 0RF amoxicillin-pot clavulanate 875-125 mg tablet 1 tab PO Q12H Qty: 20 0RF No Action albuterol sulfate [ProAir HFA] 90 mcg/actuation HFA aerosol inhaler 2 puff INHALATION Q6H PRN methocarbamol 750 mg tablet 750 mg PO TID indomethacin 75 mg capsule, extended release 75 mg PO DAILY fluticasone propion-salmeterol [Advair Diskus] 100-50 mcg/dose blister with device 1 puff INHALATION DAILY montelukast 10 mg tablet 10 mg PO DAILY gabapentin 300 mg capsule 300 mg PO DAILY Referrals: Raul Brandon DMD [Physician] - Mike Peters MD [Primary Care Provider] - Stand Alone Forms: Patient Portal/API
[2022-06-11 00:30] VITALS: PULSE 75; O2SAT 97
[2022-06-11] MEDS: AMOXICILLIN/CLAV 875/125 MG 1 TAB PO (00:46)
[2022-06-11] MEDS: HYDROCODONE/ACET 5/325 PREPACK 1 BOTTLE MISC (00:46)
[2022-06-11 00:48] VITALS: BP 182/81; PULSE 72; O2SAT 97
== END 2022-06-11 01:01 | disposition home or self-care (01) ==
PROVIDERS: Emergency Provider Emergency Medicine; PCP Internal Medicine
DX: K04.7 Periapical abscess without sinus (principal)
CPT/HCPCS: 99283

== ENCOUNTER → 2023-03-08 10:39 | Outpatient (CLI) | payer OTHER, SELFPAY ==
--- NOTE | 2023-03-08 10:40 | DI.CT.S_ITS ---
PROCEDURE: CT CHEST HIGH RESOLUTION INDICATIONS: Shortness of breath on exertion TECHNIQUE: Noncontrast 1.0 and 5.0 mm thick contiguous axial sections from the pulmonary apex to the posterior costophrenic angles, with 7 mm thick coronal and sagittal MIP reformats. 1 mm thick dynamic expiratory images acquired through the upper, mid, and lower lungs. 1.0 mm thick axial sections acquired from the rajwinder to the posterior costophrenic angles in the prone end-inspiration position. For radiation dose reduction, the following was used: automated exposure control, adjustment of mA and/or kV according to patient size. COMPARISON: [facility], CT, THORAX WITHOUT CONTRAST, 07/06/2016, 9:18. [facility], CT, CT CHEST HIGH RESOLUTION, 08/31/2021, 8:36. FINDINGS: Image quality: Excellent. Lungs: Mild peripheral reticular thickening. Mild emphysematous change. Mild bronchial wall thickening and probable minimal bronchiectasis. Possible mild honeycombing at the right lung base. No air trapping. No mass or significant pulmonary nodule. Pleura: No pleural effusions or pneumothorax. Mediastinum: Heart size is prominent. Mild coronary artery calcifications. No pericardial effusion. Thoracic aorta and central pulmonary arteries are normal in size. Esophagus is normal in caliber. AP window node measuring 1.1 cm, (07/18), unchanged. Bones and chest wall: No suspicious bony lesions. Gracile appearance of the right 6th rib is unchanged. No vertebral body compression fractures. Abdomen: Small cysts in the liver, unchanged. IMPRESSION: No interval change. Mild reticular thickening with a basilar and peripheral predominance. Suspect mild interstitial lung disease. Mild bronchial wall thickening. No acute airspace opacity. Dictated by: Hamlet Blum M.D. on 03/08/2023 at 12:40 Approved by: Hamlet Blum M.D. on 03/08/2023 at 12:49
== END ==
PROVIDERS: PCP Internal Medicine; Referring Provider Internal Medicine Critical Care Medicine; Visit Provider Internal Medicine Critical Care Medicine
DX: J84.9 Interstitial pulmonary disease, unspecified (principal); R06.09 Other forms of dyspnea
CPT/HCPCS: 71250

== ENCOUNTER → 2023-10-16 09:56 | Outpatient (CLI) | payer MEDICARE, OTHER, SELFPAY | PROVIDERS: PCP Internal Medicine; Referring Provider Internal Medicine Critical Care Medicine; Visit Provider Internal Medicine Critical Care Medicine | DX: R06.09 Other forms of dyspnea (principal) | CPT/HCPCS: 94060; 94726; 94729 ==

== ENCOUNTER → 2024-05-01 10:30 | Outpatient (CLI) | payer MEDICARE, OTHER, SELFPAY ==
--- NOTE | 2024-05-01 10:33 | DI.RAD.S_ITS ---
PROCEDURE: XR ELBOW LT 2V INDICATIONS: Pain in left elbow TECHNIQUE: Two views of the left elbow were acquired. COMPARISON: None. FINDINGS: Bones: There are no osseous abnormalities. Elbow joint: Normal in width and alignment without arthritic change. There are no effusions. Soft tissues: Minor calcification of the triceps tendon insertion on the olecranon appreciated . This is likely stigmata of old inflammation or trauma IMPRESSION: Minor calcification triceps tendon insertion on the olecranon -see above Dictated by: John Galvan M.D. on 05/02/2024 at 11:36 Approved by: John Galvan M.D. on 05/02/2024 at 11:37
== END ==
LOC: RAD 10:32
PROVIDERS: PCP Internal Medicine; Referring Provider Student in an Organized Health Care Education/Training Program; Visit Provider Student in an Organized Health Care Education/Training Program
DX: M25.522 Pain in left elbow (principal)
CPT/HCPCS: 73070

== ENCOUNTER → 2025-02-09 09:13 | Outpatient (CLI) | payer MEDICARE, OTHER, SELFPAY ==
--- NOTE | 2025-02-09 09:14 | DI.CT.S_ITS ---
PROCEDURE: CT CHEST HIGH RESOLUTION INDICATIONS: ILD, eval for change TECHNIQUE: Noncontrast 1.0 and 5.0 mm thick contiguous axial sections from the pulmonary apex to the posterior costophrenic angles, with 7 mm thick coronal and sagittal MIP reformats. 1 mm thick dynamic expiratory images acquired through the upper, mid, and lower lungs. 1.0 mm thick axial sections acquired from the rajwinder to the posterior costophrenic angles in the prone end-inspiration position. For radiation dose reduction, the following was used: automated exposure control, adjustment of mA and/or kV according to patient size. COMPARISON: [facility], CT, CT CHEST HIGH RESOLUTION, 08/31/2021, 8:36. [facility], CT, CT CHEST HIGH RESOLUTION, 03/08/2023, 10:50. FINDINGS: Image quality: Diagnostic Lungs and pleura: No honeycombing. Slightly increased peripheral reticular changes greater in the right lung. Mild cystic changes are seen in the right costophrenic angle. Slightly increased nodularity is seen at the left costophrenic angle (most notably image 3/272 ) measuring 1 cm in short axis. Findings persist on prone imaging. On expiratory imaging, mild areas of air trapping are present, probably within physiologic limits. Mediastinum, heart, and esophagus: Borderline cardiomegaly. Main pulmonary artery measures 3.9 cm. No lymphadenopathy by size criteria. Unremarkable esophagus on CT evaluation. Chest wall and thyroid: Under Upper abdomen: Partially seen splenomegaly. Partially seen nonobstructing small right upper pole renal calculus. Bones: Old right rib deformities. Degenerative osseous changes. IMPRESSION: Slight increased peripheral reticular changes greater at the bases and in the right lung. Mild cystic changes seen at the right costophrenic angle, without aidan honeycombing. 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 This could represent a true pulmonary lesion versus a nodular area of scarring (3/272). 3 month follow-up recommended. Cardiomegaly. Increased size of the main pulmonary artery, usually due to elevated pulmonary pressures. Partially seen splenomegaly. Other findings above. Dictated by: Jose Garcia M.D. on 02/09/2025 at 15:13 Approved by: Jose Garcia M.D. on 02/09/2025 at 15:19
== END ==
LOC: CT 09:13
PROVIDERS: PCP Internal Medicine; Referring Provider Internal Medicine; Visit Provider Internal Medicine Critical Care Medicine
DX: J84.9 Interstitial pulmonary disease, unspecified (principal); I51.7 Cardiomegaly; R16.1 Splenomegaly, not elsewhere classified; N20.0 Calculus of kidney
CPT/HCPCS: 71250

== ENCOUNTER → 2025-02-10 09:16 | Outpatient (CLI) | payer MEDICARE, OTHER, SELFPAY | LOC: RESP 09:16 | PROVIDERS: PCP Internal Medicine; Referring Provider Internal Medicine Critical Care Medicine; Visit Provider Internal Medicine Critical Care Medicine | DX: R06.09 Other forms of dyspnea (principal); R94.2 Abnormal results of pulmonary function studies | CPT/HCPCS: 94060; 94726; 94729 ==